=== PATIENT | female | born 1950 | race Caucasian/White ===

== ENCOUNTER 2018-10-16 10:44 | Emergency (ER) | payer MEDICARE, OTHER ==
[2018-10-16] MEDS ORDERED: ACETAMINOPHEN 325 MG TABLET PO STA (12:37)
[2018-10-16] MEDS ORDERED: BENZONATATE 100 MG CAPSULE PO STA (12:38)
[2018-10-16 12:58] VITALS: BP 115/64
--- NOTE | 2018-10-16 13:14 | XRAY Report ---
Reason: cough and dyspnea. Procedure Date: 10/16/2018 Accession Number: [id number] / [id number] Procedure: XR - Chest 2 View X-Ray CPT Code: 85071 FULL RESULT: EXAM: CHEST RADIOGRAPHY EXAM DATE: 10/16/2018 12:51 PM. CLINICAL HISTORY: Cough and dyspnea. COMPARISON: None. TECHNIQUE: 2 views. FINDINGS: Lungs/Pleura: No focal opacities evident. No pleural effusion. No pneumothorax. Normal volumes. Mediastinum: Heart and mediastinal contours are unremarkable. Other: None. IMPRESSION: Normal 2-view chest radiography. RADIA
--- NOTE | 2018-10-16 13:31 | ED Physician Documentation ---
PD HPI URI - Stated complaint Stated Complaint: COUGH, SORE THROAT - Chief complaint Chief Complaint: Resp - History obtained from History obtained from: Patient - History of Present Illness Timing - onset: How many days ago (3) Timing details: Still present Associated symptoms: Nasal congestion, Sore throat, Productive cough Contributing factors: Travel (Returned from vacation in [facility] five days ago.) - Additional information Additional information: The patient is a 68-year-old female who had upper respiratory infection symptoms starting 10 days ago. She was getting better until about 3 days ago when she developed sore throat and productive cough. She presents now with a hoarse voice. She reports mild headache. She denies fever, chest pain, or shortness of breath. Her upper respiratory symptoms started while she was on vacation in [facility]. She returned from [facility] 5 days ago. Review of Systems Constitutional: denies: Fever, Chills Eyes: denies: Irritation Ears: denies: Ear pain Nose: reports: Congestion Throat: reports: Sore throat Cardiac: denies: Chest pain / pressure Respiratory: reports: Cough. denies: Dyspnea GI: denies: Abdominal Pain, Nausea, Vomiting : denies: Dysuria Skin: denies: Rash Musculoskeletal: denies: Back pain, Extremity swelling Neurologic: reports: Headache (mild). denies: Focal weakness, Numbness PD PAST MEDICAL HISTORY - Past Medical History Cardiovascular: None Respiratory: None Endocrine/Autoimmune: None Other Past Medical History: prediabetic - Past Surgical History Past Surgical History: Yes - Present Medications Home Medications: Ambulatory Orders Medication Instructions Recorded Confirmed Benzonatate [Tessalon Perle] 100 - 200 mg PO TID PRN #30 capsule 10/16/18 - Allergies Allergies/Adverse Reactions: Allergies Allergy/AdvReac Type Severity Reaction Status Date / Time No Known Drug Allergies Allergy Verified 10/16/18 11:01 - Social History Does the pt smoke?: No Smoking Status: Never smoker Does the pt drink ETOH?: No - Immunizations Immunizations are current?: Yes PD ED PE NORMAL - Vitals Vital signs reviewed: Yes (normal) - General General: Alert and oriented X 3, Well developed/nourished, Other (Speaking with a hoarse voice.) - HEENT HEENT: Atraumatic, EOMI, Ears normal, Other (Oropharynx is mildly erythematous, without exudates or peritonsillar swelling.) - Neck Neck: Supple, no meningeal sign, No adenopathy - Cardiac Cardiac: RRR - Respiratory Respiratory: Clear bilaterally - Abdomen Abdomen: Soft, Non tender - Back Back: No CVA TTP - Derm Derm: No rash - Extremities Extremities: No edema, No calf tenderness / cord - Neuro Neuro: Alert and oriented X 3, No motor deficit, No sensory deficit Results - Vitals Vitals: Oxygen O2 Source Room air - Rads (name of study) CXR Radiology: Prelim report reviewed, EMP read contemporaneously, See rad report (Normal 2 view chest radiography.) PD MEDICAL DECISION MAKING - ED course Complexity details: reviewed results, re-evaluated patient, considered differential, d/w patient, d/w family ED course: The patient's presentation is most consistent with viral upper respiratory infection. Her clinical presentation does not suggest meningitis, pneumonitis, otitis media, or acute pharyngitis. Treatment in the emergency department included Tylenol 650 mg and Tessalon 100 mg orally. I discussed with her and her the expected course of illness, symptomatic treatment and outpatient follow-up, as well as potentially worrisome signs or symptoms that should prompt reevaluation in the emergency department She is being discharged with prescription for Tessalon.. Departure - Departure Disposition: 01 Home, Self Care Clinical Impression: Viral URI with cough Condition: Stable Instructions: ED Upper Resp Infec No Abx Tx Prescriptions: Benzonatate [Tessalon Perle] 100 - 200 mg PO TID PRN #30 capsule PRN Reason: Cough Comments: Your symptoms are most consistent with a viral upper respiratory infection. Antibiotics are not clinically indicated for this type of viral infection. Treatment should be geared toward managing symptoms: Drink plenty of fluids. Use Tylenol or ibuprofen as needed for fever or discomfort. Wash your hands frequently, and cover your cough. You can use Tessalon as prescribed if needed for cough. Follow up with your primary physician, or return to the emergency department, if not improving within 1-2 weeks. Return to the emergency department if you develop increasing difficulty breathing, or otherwise worsening symptoms. Discharge Date/Time: 10/16/18 13:39
== END 2018-10-16 13:39 | disposition home or self-care (01) ==
LOC: ED 10:44
DX: J06.9 Acute upper respiratory infection, unspecified (principal); R49.0 Dysphonia
CPT/HCPCS: 71046; 99283; A9270

== ENCOUNTER 2019-06-07 10:52 | Emergency (ER) | payer MEDICARE, OTHER ==
[2019-06-07 11:13] VITALS: BP 111/59
[2019-06-07] MEDS ORDERED: PROPARACAINE 0.5% OPHTH DROPS 15 ML LEFTEYE STA (12:09)
--- NOTE | 2019-06-07 12:10 | ED Physician Documentation ---
PD HPI OPHTHO - Stated complaint Stated Complaint: EYE PX - Chief complaint Chief Complaint: Heent - History obtained from History obtained from: Patient - History of Present Illness Timing - onset: Other (Very slightly painful lesion of the left upper eyelid for 1 week without visual compromise.) Review of Systems Constitutional: reports: Reviewed and negative Eyes: reports: Irritation. denies: Loss of vision, Decreased vision, Photophobia, Discharge Ears: denies: Loss of hearing PD PAST MEDICAL HISTORY - Past Medical History Cardiovascular: None Respiratory: None Endocrine/Autoimmune: None - Past Surgical History Past Surgical History: Yes - Present Medications Home Medications: Ambulatory Orders Medication Instructions Recorded Confirmed Benzonatate [Tessalon Perle] 100 - 200 mg PO TID PRN #30 capsule 10/16/18 Cephalexin [Keflex] 500 mg PO Q6H #28 capsule 06/07/19 Erythromycin Base [Erythromycin 1 appful OP 5XD 7 Days #1 oint...g. 06/07/19 Ophthalmic Ointment] - Allergies Allergies/Adverse Reactions: Allergies Allergy/AdvReac Type Severity Reaction Status Date / Time No Known Drug Allergies Allergy Verified 10/16/18 11:01 - Social History Does the pt smoke?: No Smoking Status: Never smoker Does the pt drink ETOH?: No - Immunizations Immunizations are current?: Yes PD ED PE NORMAL - Vitals Vital signs reviewed: Yes - General General: Alert and oriented X 3, No acute distress - HEENT HEENT: PERRL, EOMI, Other (There is a pointed stye on the left upper lid with mild surrounding cellulitis) - Neck Neck: Supple, no meningeal sign, No bony TTP - Neuro Neuro: Alert and oriented X 3, Normal speech - Psych Psych: Normal mood, Normal affect Results - Vitals Vitals: Vital Signs - 24 hr 06/07/19 11:06 Temperature 36.5 C Heart Rate 70 Respiratory 18 Rate Blood Pressure 111/59 L O2 Saturation 100 Oxygen O2 Source Room air Procedures - General procedure General procedure: The stye was quite pointed and looked like it was ready to pop. I instilled a couple of drops of proparacaine and just using a Q-tip it was manipulated and expressed. Departure - Departure Disposition: 01 Home, Self Care Clinical Impression: Stye Qualifiers: Laterality: left Eyelid: upper Qualified Code(s): H00.014 - Hordeolum externum left upper eyelid Condition: Good Record reviewed to determine appropriate education?: Yes Instructions: ED Misael Follow-Up: Zion Victor MD [Provider Admit Priv/Credential] - Within 3 Days Prescriptions: Cephalexin [Keflex] 500 mg PO Q6H #28 capsule Erythromycin Base [Erythromycin Ophthalmic Ointment] 1 appful OP 5XD 7 Days #1 oint...g.
== END 2019-06-07 12:23 | disposition home or self-care (01) ==
LOC: ED 10:52
DX: H00.014 Hordeolum externum left upper eyelid (principal); H00.034 Abscess of left upper eyelid
CPT/HCPCS: 99282; 99284; J3490

== ENCOUNTER 2019-07-23 09:50 | Outpatient (CLI) | payer MEDICARE, OTHER | END 2019-07-23 09:51 | disposition home or self-care (01) | LOC: LAB.S 09:50 | PROVIDERS: ATTEND Internal Medicine | DX: Z13.6 Encounter for screening for cardiovascular disorders (principal); R73.01 Impaired fasting glucose; R10.2 Pelvic and perineal pain; Z12.11 Encounter for screening for malignant neoplasm of colon; Z12.12 Encounter for screening for malignant neoplasm of rectum; Z11.59 Encounter for screening for other viral diseases ==

== ENCOUNTER 2019-09-16 14:12 | Outpatient (CLI) | payer MEDICARE, OTHER ==
--- NOTE | 2019-09-17 10:10 | DEXA Report ---
Reason: POSTMENOPAUSAL Procedure Date: 09/16/2019 Accession Number: [id number] / [id number] Procedure: DEX - Dexa Spine and/or Hip CPT Code: Final Report FULL RESULT: EXAM: Dexa Spine and/or Hip DATE: 09/16/2019 3:07 PM CLINICAL HISTORY: POSTMENOPAUSAL TECHNIQUE: Dual energy x-ray absorptiometry (DXA) was performed on a [employer] Mobile System. Regions measured are the AP Spine, femoral neck, and if needed forearm. COMPARISON: None. In accordance with the International Society for Clinical Densitometry (ISCD) guidelines, data from previous exams may be reanalyzed using current recommendations and techniques. This is done to allow a more accurate basis for comparison with the current study. FINDINGS: The data for the lumbar spine is as follows: BMD (g/cm/cm) T-SCORE Z-SCORE REGION L1 0.914 -1.8 0.1 L2 1.165 -0.3 1.6 L3 1.208 0.1 1.9 L4 1.184 -0.1 1.7 TOTAL 1.125 -0.5 1.4 NOTE: All evaluable vertebrae are used for classification The data for the hip is as follows: BMD (g/cm/cm) T-SCORE Z-SCORE REGION Neck 0.767 -1.9 -0.1 TOTAL 0.741 -2.1 -0.5 NOTE: The femoral neck or total proximal femur, whichever is lowest, is used for classification. IMPRESSION: THE WHO CLASSIFICATION BASED ON THE INTERNATIONAL REFERENCE STANDARD IS OSTEOPENIA. THE FRACTURE RISK IS INCREASED. RECOMMENDATION: Patients with diagnosis of osteoporosis or osteopenia should have regular bone mineral density assessment. For those eligible for Medicare, routine testing is allowed once every 2 years. Testing frequency can be increased for patients who have rapidly progressing disease or for those who are receiving medical therapy to restore bone mass. COMMENT: World Health Organization (WHO) definitions for osteoporosis and osteopenia: NORMAL BMD: T-score at -1.0 or higher, fracture risk is low OSTEOPENIA BMD: T-score between -1.0 and -2.5, fracture risk is increased. OSTEOPOROSIS BMD: T-score at -2.5 or lower, fracture risk is high. National Osteoporosis Foundation recommends: 1. Obtain adequate dietary calcium (at least 1200 mg per day) and vitamin D (400-800 international units per day). 2. Participate, as appropriate, in regular weightbearing and muscle-strengthening exercise. 3. Avoid tobacco use and reduce alcohol and caffeine intake. 4. For more detailed information see the website at www.NOF.org.
== END 2019-09-16 14:13 | disposition home or self-care (01) ==
LOC: DI 14:12
PROVIDERS: ATTEND Internal Medicine
DX: Z13.820 Encounter for screening for osteoporosis (principal); M85.88 Other specified disorders of bone density and structure, other site; Z78.0 Asymptomatic menopausal state
CPT/HCPCS: 77080

== ENCOUNTER 2019-12-16 11:45 | Outpatient (CLI) | payer MEDICARE, OTHER ==
--- NOTE | 2019-12-16 13:13 | XRAY Report ---
Reason: L ANKLE PAIN Procedure Date: 12/16/2019 Accession Number: [id number] / [id number] Procedure: XR - Ankle 3 View LT CPT Code: Final Report FULL RESULT: EXAM: LEFT ANKLE RADIOGRAPHY EXAM DATE: 12/16/2019 11:49 AM. CLINICAL HISTORY: L ANKLE PAIN. COMPARISON: KNEE 3 VIEW LT 12/16/2019 12:07 PM. TECHNIQUE: 3 views. FINDINGS: Bones: Ossific density at tip of distal fibula with irregular superior margin suggests minimally displaced avulsion fracture. Joints: Tibiotalar effusion present. No subluxations. The ankle mortise appears normally aligned. Soft Tissues: Mild lateral soft tissue swelling. IMPRESSION: Minimally displaced avulsion fracture at tip of distal fibula. [facility] The call report notification system was initiated by Dr. Silverio Bosch at 01:06 PM on 12/16/2019. The above call report findings were discussed with Dr. Diane Corbett by Dr. Silverio Bosch at 01:10 PM on 12/16/2019.
--- NOTE | 2019-12-16 13:15 | XRAY Report ---
Reason: PAIN IN LEFT KNEE Procedure Date: 12/16/2019 Accession Number: [id number] / [id number] Procedure: XR - Knee 3 View LT CPT Code: Final Report FULL RESULT: EXAM: LEFT KNEE RADIOGRAPHY EXAM DATE: 12/16/2019 12:07 PM. CLINICAL HISTORY: PAIN IN LEFT KNEE. COMPARISON: None. TECHNIQUE: 3 views. FINDINGS: Bones: No visible fractures or bone lesions. Joints: Possible small joint effusion. No subluxations. Soft Tissues: Unremarkable. IMPRESSION: 1. No visible fracture or malalignment. 2. Possible small joint effusion. RADIA The above call report findings were discussed with Dr. Diane Corbett by Dr. Silverio Bosch at 01:10 PM on 12/16/2019.
== END 2019-12-16 11:46 | disposition home or self-care (01) ==
LOC: DI 11:45
PROVIDERS: ATTEND Internal Medicine
DX: S82.832A Other fracture of upper and lower end of left fibula, initial encounter for closed fracture (principal); M25.562 Pain in left knee

== ENCOUNTER 2019-12-29 11:55 | Outpatient (CLI) | payer MEDICARE, OTHER ==
--- NOTE | 2019-12-30 02:10 | XRAY Report ---
Reason: PAIN IN UNSPECIFIED HIPS Procedure Date: 12/29/2019 Accession Number: [id number] / [id number] Procedure: XR - Hips 2V BILAT CPT Code: Final Report FULL RESULT: EXAM: BILATERAL HIP RADIOGRAPHY EXAM DATE: 12/29/2019 12:14 PM. CLINICAL HISTORY: PAIN IN UNSPECIFIED HIPS. COMPARISON: KNEE 3 VIEW LT 12/16/2019 12:07 PM. TECHNIQUE: 2 views each. FINDINGS: Bones: Normal. No fractures or suspicious bone lesion. Right Hip: Subluxation or dislocation. Minimal superior joint space narrowing. Left Hip: No subluxation or dislocation. Minimal superior joint space narrowing. Soft Tissues: Normal. No soft tissue swelling. IMPRESSION: 1. No acute osseous abnormality. 2. Minimal degenerative changes of bilateral hips. Right: Kellgren Irineo Grade 1. Left: Kellgren Irineo Grade 1. Kellgren and Irineo classification of osteoarthritis: Grade 0: no radiographic features of osteoarthritis are present Grade 1: doubtful joint space narrowing (JSN) and possible osteophytic lipping Grade 2: definite osteophytes and possible JSN on anteroposterior weight-bearing radiograph Grade 3: multiple osteophytes, definite JSN, sclerosis, possible bony deformity Grade 4: large osteophytes, marked JSN, severe sclerosis and definite bony deformity RADIA
== END 2019-12-29 11:56 | disposition home or self-care (01) ==
LOC: DI 11:55
PROVIDERS: ATTEND Internal Medicine
DX: M16.0 Bilateral primary osteoarthritis of hip (principal)
CPT/HCPCS: 73521

== ENCOUNTER 2022-06-21 08:00 | Outpatient (CLI) | payer MEDICARE, OTHER ==
[2022-06-21 16:02] LABS: BASOPHILS % (AUTO) 0.8 %; EOSINOPHILS # (AUTO) 0.1 10^3/uL (0.0-0.7); EOSINOPHILS % (AUTO) 2.9 %; HCT - HEMATOCRIT 41.3 % (37.0-47.0); HGB - HEMOGLOBIN 13.4 g/dL (12.0-16.0); LYMPHOCYTES # (AUTO) 1.7 10^3/uL (1.5-3.5); LYMPHOCYTES % (AUTO) 34.4 %; MEAN CORPUSCULAR HEMOGLOBIN 28.6 pg (27.0-31.0); MEAN CORPUSCULAR HGB CONC 32.4 g/dL (32.0-36.0); MEAN CORPUSCULAR VOLUME 88.2 fL (81.0-99.0); MEAN PLATELET VOLUME 10.5 fL (7.9-10.8); MONOCYTES # (AUTO) 0.5 10^3/uL (0.0-1.0); MONOCYTES % (AUTO) 9.7 %; NEUTROPHILS # (AUTO) 2.5 10^3/uL (1.5-6.6); PLT - PLATELET COUNT 327 10^3/uL (130-450); RED BLOOD COUNT 4.68 10^6/uL (4.20-5.40); RED CELL DISTRIBUTION WIDTH 12.7 % (12.0-15.0); WHITE BLOOD COUNT 4.9 x10^3/uL (4.8-10.8)
[2022-06-21 16:03] LABS: BILIRUBIN,URINE NEGATIVE (NEGATIVE); GLUCOSE, URINE (UA) NEGATIVE (NEGATIVE); KETONES,URINE (UA) NEGATIVE (NEGATIVE); LEUKOCYTE ESTERASE, URINE NEGATIVE (NEGATIVE); NITRITE,URINE NEGATIVE (NEGATIVE); OCCULT BLOOD,URINE NEGATIVE (NEGATIVE); PROTEIN,URINE NEGATIVE (NEGATIVE); UROBILINOGEN,URINE 0.2 (NORMAL) E.U./dL (NORMAL)
[2022-06-21 16:10] LABS: CLARITY,URINE CLEAR (CLEAR)
[2022-06-21 16:28] LABS: ALBUMIN 4.3 g/dL (3.2-5.5); ALBUMIN/GLOBULIN RATIO 1.7 (1.0-2.2); ALKALINE PHOSPHATASE 75 IU/L (42-121); ALT ALANINE AMINOTRANSFERASE 31 IU/L (10-60); AST ASPARTATE AMINOTRANSFERASE 38 IU/L (10-42); BILIRUBIN,TOTAL 0.8 mg/dL (0.2-1.0); BUN - BLOOD UREA NITROGEN 17 mg/dL (6-20); CALCIUM 9.7 mg/dL (8.5-10.3); CARBON DIOXIDE - CO2 28 mmol/L (21-32); CHLORIDE 101 mmol/L (101-111); CHOL/HDL RATIO 2.4 (<4.4); CHOLESTEROL 191 mg/dL; CREATININE 0.9 mg/dL (0.4-1.0); GFR - MDRD 61 (>89); GLUCOSE 94 mg/dL (70-100); HDL CHOLESTEROL 80 mg/dL; LDL CHOLESTEROL,CALCULATED 102 mg/dL; LDL/HDL RATIO 1.3 (<4.4); POTASSIUM 4.2 mmol/L (3.5-5.0); SODIUM 137 mmol/L (135-145); TOTAL PROTEIN 6.8 g/dL (6.7-8.2); TRIGLYCERIDES 44 mg/dL; VLDL CHOLESTEROL 9 mg/dL
[2022-06-21 18:24] LABS: ESTIMATED AVERAGE GLUCOSE 123 mg/dL (70-100); HEMOGLOBIN A1c% 5.9 % (4.27-6.07)
== END 2022-06-21 23:59 | disposition home or self-care (01) ==
LOC: LAB.R 08:00
PROVIDERS: ATTEND Internal Medicine
DX: Z00.00 Encounter for general adult medical examination without abnormal findings (principal); B02.9 Zoster without complications; R73.9 Hyperglycemia, unspecified; R10.9 Unspecified abdominal pain; Z13.6 Encounter for screening for cardiovascular disorders; Z79.899 Other long term (current) drug therapy
CPT/HCPCS: 80053; 80061; 81001; 81003; 83036; 83721; 84443; 85025; 87086

== ENCOUNTER 2023-10-06 10:47 | Outpatient (CLI) | payer MEDICARE, OTHER ==
--- NOTE | 2023-10-06 14:05 | DEXA Report ---
PROCEDURE: Dexa Spine and/or Hip INDICATIONS: POST MENOPAUSAL TECHNIQUE: Dual energy x-ray absorptiometry (DXA) was performed on a [employer] System. Regions measur ed are the AP Spine, femoral neck, and if needed forearm. COMPARISON: DEXA 09/16/2019 FINDINGS: Lumbar Spine: Bone Mineral Density: 1.174 g/cm/cm,T score: 0, compared to -0.5. Left Femoral Neck: Bone Mineral Density: 0.737 g/cm/cm, T score: -2.2, compared to -1.9. Left Hip: Bone Mineral Density: 0.729 g/cm/cm,T score: -2.2, compared to -2.1. (T score greater or equal to -1.0: NORMAL) (T score from -1.1 to -2.4: OSTEOPENIA) (T score less than or equal to -2.5 to: OSTEOPOROSIS) Impression: By WHO criteria, this patient has minimal progression of osteopenia in the left femoral neck. Osteope aaron in left hip is relatively stable. Patients with diagnosis of osteoporosis or osteopenia should have regular bone mineral density assess ment. For those eligible for Medicare, routine testing is allowed once every 2 years. Testing frequ ency can be increased for patients who have rapidly progressing disease or for those who are receivin g medical therapy to restore bone mass. Reviewed by: Delmis Espinoza MD on 10/06/2023 2:03 PM PST Approved by: Delmis Espinoza MD on 10/06/2023 2:03 PM PST Station ID: [id number]
== END 2023-10-06 10:48 | disposition home or self-care (01) ==
LOC: DI 10:47
PROVIDERS: ATTEND Internal Medicine
DX: M85.89 Other specified disorders of bone density and structure, multiple sites (principal); Z78.0 Asymptomatic menopausal state